=== PATIENT | female | born 1995 | race African-American/Black ===

== ENCOUNTER 2020-10-24 10:27 | Emergency (ER) | payer OTHER, SELFPAY ==
--- NOTE | ~2020-10-24 | CT_ITS ---
EXAMINATION: CT brain wo con INDICATION: Altered mental status COMPARISON: None TECHNIQUE: Standard unenhanced head CT. The dose-length product (DLP) was 605.33 mGy-cm. The mA was a djusted according to patient size. Iterative reconstruction technique was employed. FINDINGS: There is no intracranial hemorrhage, acute infarction, or abnormal mass lesion. The ventric les are normal. There is no abnormal mass effect or midline shift. There are subtle hyperdensities in the bilateral basal ganglia which could reflect early calcification versus metabolic disorder. The g ray-white matter differentiation is normal. The basal cisterns are patent. The orbits are normal. The paranasal sinuses, mastoids and calvarium are normal. IMPRESSION: 1. No acute intracranial abnormality. Reviewed, dictated and finalized at location A.
[2020-10-24 10:37] VITALS: BP 129/75; PULSE 97; RESP 14; TEMP 36.7; O2SAT 100
[2020-10-24 10:59] LABS: Basophils Percent Auto 0.4 % (0.2-1.2); Eosinophils Absolute Auto 0.1 K/mm3 (0-0.3); Eosinophils Percent Auto 0.9 % (0-4.4); Hematocrit 35.6 % (37.0-47.0); Hemoglobin 11.5 g/dL (12.0-15.0); Immature Granulocyte Absolute 0.02 K/mm3 (0.00-0.031); Immature Granulocyte Percent A 0.3 % (0-0.5); Lymphocytes Absolute Auto 2.26 K/mm3 (0.9-3.2); Lymphocytes Percent Auto 32.1 % (18.3-44.2); Mean Corpuscular HGB Conc 32.3 g/dl (32-36); Mean Corpuscular Hemoglobin 31.5 pg (26-34); Mean Corpuscular Volume 97.5 fl (80-100); Mean Platelet Volume 9.8 fl (7.4-10.4); Monocytes Absolute Auto 0.5 K/mm3 (0.1-0.6); Monocytes Percent Auto 7.1 % (2.6-8.5); Neutrophils Absolute Auto 4.2 K/mm3 (1.3-6.7); Neutrophils Percent Auto 59.2 % (45.5-73.1); Platelet Count Result 252 k/mm3 (150-375); Red Blood Count 3.65 M/mm3 (4.2-5.4); Red Cell Distribution Width 13.2 % (11.5-14.5); White Blood Count 7.1 K/mm3 (4.5-10.0)
[2020-10-24 11:11] LABS: Alanine Aminotransferase 14 U/L (4-35); Albumin Level 4.2 g/dL (3.5-5.1); Alkaline Phosphatase 53 U/L (38-126); Anion Gap 8 mmol/L (8-16); Aspartate Amino Transferase 21 U/L (14-36); Bilirubin,Total 0.5 mg/dL (0.2-1.3); Blood Urea Nitrogen 8 mg/dL (7-17); Calcium 9.4 mg/dL (8.4-10.2); Carbon Dioxide 28 mmol/L (22-30); Chloride 103 mmol/L (98-107); Estimated CRCL calculation 90 ml/min; Estimated Glomerular Filt Rate > 60; Ethanol < 10 mg/dL (<10); Glucose 109 mg/dL (65-110); Sodium 139 mmol/L (137-145)
[2020-10-24 11:56] LABS: Add Urine Microscopic? YES; Appearance Urine Clear (Clear); Bacteria Urine Trace /hpf; Bilirubin Urine Negative (Negative); Blood Urine Negative (Negative); Color Urine Yellow (Yellow); Glucose Urine UA Negative (Negative); Ketones Urine Trace mg/dL (Negative); Leukocyte Esterase Ur Negative LEU/UL (Negative); Mucus Urine Few /lpf; Nitrate Urine Negative (Negative); Protein Urine 1+ mg/dL (Negative); Specific Grav Ur 1.019 (1.001-1.035); Squamous Epithelial Cell Urine Few /hpf (Few); WBC Urine 0-3 /hpf
--- NOTE | 2020-10-24 11:58 | ED.PSYCH ---
HPI - Psych General Chief Complaint: Psychiatric Symptoms Stated Complaint: PSYCH EVAL Time Seen by Provider: 10/24/20 11:49 Source: RN notes reviewed History of Present Illness HPI Narrative: Patient presents emergency department from home with father for psychiatric evaluation. History is per the patient and father per the father the patient has been acting very paranoid over the past 4 days she has been thinking that someone is trying to get her or that somebody is trying to take her baby. Father states that this is very unusual for the patient to be thinking this way and is acute in the past 4 days patient is currently awake and alert x4 she denies hearing any hallucinations or seeing any visual hallucinations she does note feeling paranoid at times denies any previous psychiatric history she denies any recent illness denies any headaches fevers or any other symptoms Related Data Allergies Allergy/AdvReac Type Severity Reaction Status Date / Time No Known Allergies Allergy Verified 10/24/20 12:39 Review of Systems Review of Systems: Gen.: Denies fevers or chills Eyes: Denies eye pain or visual change ENT: Denies congestion Respiratory: Denies shortness of breath or cough CV: Denies chest pain or palpitations GI: Denies abdominal pain nausea, emesis or diarrhea Musculoskeletal: Denies back pain or muscle pain Neuro: Denies headache or weakness Skin: Denies rash Psych: See HPI Except as documented, all other systems reviewed and negative [facility] Past Medical History Medical History (Updated 10/24/20 @ 14:45 by Dick Tim DO) Patient denies significant medical history Social History Social History (Updated 10/24/20 @ 11:59 by Dick Tim DO) Smoking status: Never smoker Substance use type: does not use Exam Narrative: APPEARANCE: No acute distress, nontoxic, resting in bed EYES: EOMI HEENT: Normocephalic, atraumatic, OMM RESPIRATORY: No respiratory distress Clear to auscultation bilaterally with no rhonchi wheezing or rales. CARDIOVASCULAR: Regular rate and rhythm without murmurs rubs or gallops. ABDOMINAL: Soft, nontender, nondistended, no rebound or guarding MUSCULOSKELETAl: Moves all extremities. No clubbing, cyanosis or edema. NEURO: Awake and alert x 4. Following commands, speech normal, no focal deficits SKIN:: Warm, dry. No rashes lesions or abrasions PSYCHIATRIC: Normal affect/mood, denies suicidal ideation, denies homicidal ideation Course Course Emergency Course: Patient evaluated by [facility] airplane patrol pilot. Patient does not have any criteria for inpatient admission and the patient does not wish for voluntary placement at this time patient will have a safety contract performed and will be discharged Reevaluate the patient denies any suicidal homicidal ideation remains awake and alert x4 states she has been under increased stress requesting anxiety medication will give small amount of Xanax Discussed with patient results of workup and diagnosis. Discussed need for follow-up with primary care, proper use of medication, and reasons to return to the emergency department. Patient understands and agrees to current treatment plan Vital Signs Vital signs: Vital Signs Temperature 98.1 F 10/24/20 10:37 Pulse Rate 97 10/24/20 10:37 Respiratory Rate 14 10/24/20 10:37 Blood Pressure 129/75 10/24/20 10:37 Pulse Oximetry 100 10/24/20 10:37 Temperature 98.1 F 10/24/20 10:37 Pulse Rate 97 10/24/20 10:37 Respiratory Rate 14 10/24/20 10:37 Blood Pressure 129/75 10/24/20 10:37 Pulse Oximetry 100 10/24/20 10:37 MDM - Psych Lab Data Result diagrams: 10/24/20 10:52 10/24/20 10:52 Labs: Lab Results 10/24/20 10/24/20 10/24/20 Range/Units 10:52 10:52 10:52 WBC 7.1 (4.5-10.0) K/mm3 RBC 3.65 L (4.2-5.4) M/mm3 Hgb 11.5 L (12.0-15.0) g/dL Hct 35.6 L (37.0-47.0) % MCV 97.5 (80-100) fl MCH 31.5 (26-34)
[2020-10-24 12:08] LABS: Amphetamine Screen Urine Negative (Negative); Barbiturate Screen Urine Negative (Negative); Benzodiazepines Screen Urine Negative (Negative); Cannabinoid Screen Urine Negative (Negative); Cocaine Screen Urine Negative (Negative); Methadone Screen Urine Negative (Negative); Opiate Screen Urine Negative (Negative); Phencyclidine Screen Urine Negative (Negative)
[2020-10-24 15:04] VITALS: BP 133/84; PULSE 97; RESP 14; O2SAT 100
== END 2020-10-24 15:06 | disposition home or self-care (01) ==
PROVIDERS: Emergency Medicine; Emergency Provider Emergency Medicine
DX: F22 Delusional disorders (principal); F41.9 Anxiety disorder, unspecified
CPT/HCPCS: 36415; 70450; 80053; 80307; 81001; 81025; 84443; 85025; 99284

== ENCOUNTER 2020-10-24 15:28 | Emergency (ER) | payer OTHER, SELFPAY ==
--- NOTE | 2020-10-24 15:54 | PC.NURSE ---
No answer when called for triage.
--- NOTE | 2020-10-24 16:01 | PC.NURSE ---
No answer when called for triage.
== END 2020-10-25 02:44 | disposition left against medical advice (07) ==
LOC: ANHED 16:58
DX: Z53.21 Procedure and treatment not carried out due to patient leaving prior to being seen by health care provider (principal)
CPT/HCPCS: 99199